=== PATIENT | male | born 1955 | race African-American/Black ===

== ENCOUNTER 2017-03-19 09:58 | Emergency (ER) | payer SELFPAY ==
[2017-03-19] MEDS ORDERED: BENADRYL IV ONE (10:59)
[2017-03-19] MEDS ORDERED: LIDOCAINE VISCOUS 2% PO ONE (10:59)
[2017-03-19] MEDS ORDERED: REGLAN IV ONE (10:59)
[2017-03-19] MEDS ORDERED: ALUM-MAG HYDROX-SIMETH 200-200-20MG/5ML PO ONE (10:59)
[2017-03-19] MEDS ORDERED: PEPCID IV ONE (10:59)
[2017-03-19] MEDS ORDERED: NACL 0.9% 1000 ML 1,000 ML IV ONE (10:59)
--- NOTE | 2017-03-19 11:24 | Emergency Department Report ---
ED Chest Pain HPI - General Chief Complaint: Fever Stated Complaint: CHEST PAIN Time Seen by Provider: 03/19/17 10:37 Source: patient, family Mode of arrival: Ambulatory Limitations: Language Barrier - History of Present Illness Initial Comments: 61-year-old male with a past medical history of hypertension presents to the hospital with intermittent hiccups 9 days, burning chest pain, and intermittent headache. Patient is originally from [facility] but has been in the times one year denies any recent travel outside the country. He is taking blood pressure medication that has been prescribed to him previously in [facility]. He had a refill sent from [facility] 9 days ago. Since beginning of this refill his symptoms have occurred. Patient does not know the name of the pills the cannot verify if they are the same pills however, he states they look the same as his previous pills. Patient currently not having any hiccups but apparently had hiccups upon arrival. Patient complains of burning pain to his chest currently but states it initially does not hurt in the morning but then happens throughout the day duties by mouth intake secondary to decreased appetite. Patient complains of shortness of breath only with hiccups episodes. He denies nausea, vomiting, or diaphoresis. He complains of a moderate frontal headache. No local PMD Severity scale (0 -10): 6 - Related Data Allergies Allergy/AdvReac Type Severity Reaction Status Date / Time No Known Allergies Allergy Verified 03/19/17 10:15 Heart Score - HEART Score History: Slightly suspicious EKG: Normal Age: 45-65 Risk factors: 1-2 risk factors Troponin: < normal limit HEART Score: 2 ED Review of Systems ROS: Stated complaint: CHEST PAIN Other details as noted in HPI Comment: All other systems reviewed and negative Other: Constitutional: No fevers chills or weight loss Eyes: No eye pain visual changes or discharge ENT: No ear pain or throat pain Neck: Denies pain Respiratory: Denies cough wheezing Cardiovascular: Denies palpitations, syncope GI: Denies abdominal pain, nausea, vomiting, diarrhea : Denies dysuria Musculoskeletal: Denies back pain Skin: Denies rash, lesions, erythema Neurologic: Denies headache, numbness, weakness Psychiatric: Denies suicidal ideation, hallucinations ED Past Medical Hx - Past Medical History Hx Hypertension: Yes - Surgical History Past Surgical History?: Yes Additional Surgical History: leg - Social History Smoking Status: Never Smoker Substance Use Type: Alcohol ED Physical Exam - General Limitations: Language Barrier - Other Other exam information: General: No limitations, patient is alert in no acute distress Head exam: Atraumatic, normocephalic Eyes exam: Normal appearance, pupils equal reactive to light, extraocular movements intact ENT: Moist mucous membrane, normal oropharynx Neck exam: Normal inspection, full range of motion, no meningismus nontender Respiratory exam: Clear to auscultation bilateral, no wheezes, rales, crackles Cardiovascular: Normal rate and rhythm, normal heart sounds Abdomen: Soft, nondistended, and nontender, with normal bowel sounds, no rebound, or guarding Extremity: Full range of motion normal inspection no deformity Back: Normal Inspection, full range of motion, no tenderness Neurologic: Alert, oriented x3, cranial nerves intact, no motor or sensory deficit Psychiatric: normal affect, normal mood Skin: Warm, dry, intact ED Course Vital Signs 03/19/17 03/19/17 03/19/17 10:11 10:37 10:38 Temperature 98.4 F 98.1 F Pulse Rate 108 H 106 H Respiratory 20 20 20 Rate Blood Pressure 140/92 Blood Pressure 142/85 [Left] O2 Sat by Pulse 98 98 98 Oximetry 03/19/17 13:36 Temperature Pulse Rate 105 H Respiratory 18 Rate Blood Pressure Blood Pressure 156/84 [Left] O2 Sat by Pulse 98 Oximetry ED Medical Decision Making - Lab Data Result diagrams: 03/19/17 10:59 03/19/17 11:56 Lab Results 03/19/17 03/19/17 03/19/17 Range/Units 10:59 11:56 11:56 WBC 8.2 (4.5-11.0) K/mm3 RBC 4.73 (3.65-5.03) M/mm3 Hgb 12.9 (11.8-15.2) gm/dl Hct 37.1 (35.5-45.6) % MCV 79 L (84-94) fl MCH 27 L (28-32) pg MCHC 35 H (32-34) % RDW 13.8 (13.2-15.2) % Plt Count 300 (140-440) K/mm3 Lymph % (Auto) 10.8 L (13.4-35.0) % Nash % (Auto) 14.6 H (0.0-7.3) % Eos % (Auto) 0.0 (0.0-4.3) % Baso % (Auto) 0.3 (0.0-1.8) % Lymph # 0.9 L (1.2-5.4) K/mm3 Nash # 1.2 H (0.0-0.8) K/mm3 Eos # 0.0 (0.0-0.4) K/mm3 Baso # 0.0 (0.0-0.1) K/mm3 Seg Neutrophils % 74.3 H (40.0-70.0) % Seg Neutrophils # 6.1 (1.8-7.7) K/mm3 Sodium 127 L (137-145) mmol/L Potassium 3.5 L (3.6-5.0) mmol/L Chloride 89.2 L (98-107) mmol/L Carbon Dioxide 19 L (22-30) mmol/L Anion Gap 22 mmol/L BUN 13 (9-20) mg/dL Creatinine 0.9 (0.8-1.5) mg/dL Estimated GFR > 60 ml/min BUN/Creatinine Ratio 14.44 % Glucose 104 H (75-100) mg/dL Calcium 8.2 L (8.4-10.2) mg/dL Total Bilirubin 1.30 H (0.1-1.2) mg/dL AST 42 H (5-40) units/L ALT 23 (7-56) units/L Alkaline Phosphatase 37 (35-129) units/L Total Creatine Kinase 574 H (55-170) units/L CK-MB (CK-2) 2.4 (0.0-4.0) ng/mL CK-MB (CK-2) Rel Index 0.4 (0-4) Troponin T < 0.010 (0.00-0.029) ng/mL Total Protein 8.2 (6.3-8.2) g/dL Albumin 3.7 L (3.9-5) g/dL Albumin/Globulin Ratio 0.8 % Triglycerides 82 (2-149) mg/dL Cholesterol 143 (50-199) mg/dL LDL Cholesterol Direct 101 (50-130) mg/dL HDL Cholesterol 26 L (40-59) mg/dL Cholesterol/HDL Ratio 5.50 % - EKG Data -: EKG Interpreted by Me (sinus tach 104 lae, no stemi) - Radiology Data Radiology results: report reviewed (chest x-ray: No acute findings) - Medical Decision Making Plan admit patient to hospital for further workup. I suspect GI cause of symptoms but patient also has cardiac risk factors, there is significant language barrier, and lack of follow-up. - Differential Diagnosis intractable hiccups, PR, GERD, esophageal spasm Critical Care Time: No Critical care attestation.: If time is entered above; I have spent that time in minutes in the direct care of this critically ill patient, excluding procedure time. ED Disposition Clinical Impression: Chest pain, Hiccoughs, HTN (hypertension) Disposition: OP ADMIT IP TO THIS HOSP Is pt being admited?: Yes Condition: Stable Time of Disposition: 12:57 (Dr Causey/hosp)
[2017-03-19 12:02] LABS: Basophils % (Auto) 0.3 % (0.0-1.8); Hematocrit 37.1 % (35.5-45.6); Hemoglobin 12.9 gm/dl (11.8-15.2); Mean Corpuscular HGB Conc 35 % (32-34); Mean Corpuscular Hemoglobin 27 pg (28-32); Mean Corpuscular Volume 79 fl (84-94); Platelet Count 300 K/mm3 (140-440); Red Blood Count 4.73 M/mm3 (3.65-5.03); Red Cell Distribution Width 13.8 % (13.2-15.2); White Blood Count 8.2 K/mm3 (4.5-11.0)
--- NOTE | 2017-03-19 12:16 | XRay Report ---
AP CHEST: HISTORY: chest pain AP view of the chest demonstrates a normal mediastinal and cardiac contour with clear lungs and normal bony and soft tissue structures. IMPRESSION: No acute cardiopulmonary process.
[2017-03-19 12:20] LABS: Creatine Kinase MB 2.4 ng/mL (0.0-4.0)
[2017-03-19 12:22] LABS: Alanine Aminotransferase 23 units/L (7-56); Albumin 3.7 g/dL (3.9-5); Albumin/Globulin Ratio 0.8 %; Alkaline Phosphatase 37 units/L (35-129); Anion Gap 22 mmol/L; BUN/Creatinine Ratio 14.44; Blood Urea Nitrogen 13 mg/dL (9-20); Calcium 8.2 mg/dL (8.4-10.2); Carbon Dioxide 19 mmol/L (22-30); Chloride 89.2 mmol/L (98-107); Creatine Kinase 574 units/L (55-170); Glucose 104 mg/dL (75-100); Potassium 3.5 mmol/L (3.6-5.0); Sodium 127 mmol/L (137-145); Total Protein 8.2 g/dL (6.3-8.2)
[2017-03-19] MEDS ORDERED: K-DUR PO ONE (12:43)
[2017-03-19] MEDS ORDERED: NACL 0.45% 1,000 ML IV SCH (14:00)
[2017-03-19] MEDS ORDERED: NACL ONE (15:22)
--- NOTE | 2017-03-19 16:08 | Cat Scan Report ---
FINAL REPORT EXAM: CT ANGIO CHEST HISTORY: dypsnea TECHNIQUE: CT chest CT angiogram with reconstructions PRIORS: None. FINDINGS: Exam is limited due to extensive respiratory motion artifact. Within the limits of the study there is no evidence of filling defect within the central pulmonary vasculature to suggest the presence of acute pulmonary embolus. No evidence of mediastinal pathologic lymph node enlargement Heart and great vessels are unremarkable. The aorta is normal in caliber. No focal pulmonary infiltrate identified. No pleural fluid collection seen. No acute pulmonary abnormality noted. Visualized portion of the upper abdomen demonstrates no acute change. IMPRESSION: Within the limits of the exam no CT evidence of acute pulmonary embolus
--- NOTE | 2017-03-19 16:17 | History and Physical Report ---
History of Present Illness Chief complaint: chest pain History of present illness: 61 YO Male HTN presents to ED for evaluation of chest pain, and hiccups. Pt seen and evaluated in ED and treated with supportive care, IVF, serial cardiac enzymes, ekg and telemetry monitoring. Pt found to have elevated D dimer and underwent CTA chest which was negative for acute findings. Pt medically optimized and discharged home. Pt instructed to f/u pcp 1wk for f/u care. Past History Past Medical History: hypertension Past Surgical History: No surgical history, Other (reviewed) Social history: single. denies: smoking, alcohol abuse, prescription drug abuse , IV drug use Family history: hypertension Medications and Allergies Allergies Allergy/AdvReac Type Severity Reaction Status Date / Time No Known Allergies Allergy Verified 03/19/17 10:15 Home Medications Medication Instructions Recorded Confirmed Last Taken Type Lansoprazole/Amoxiciln/Clarith 1 each PO BID #1 combo..pkg 03/19/17 Unknown Rx [Prevpac Patient Pack] Lansoprazole/Amoxiciln/Clarith 1 each PO BID #20 combo..pkg 03/19/17 Unknown Rx [Prevpa Patient Pack] Active Meds: Active Medications Sodium Chloride (Nacl 0.45%) 1,000 mls @ 500 mls/hr IV DIRECT GURJIT Review of Systems Constitutional: no weight loss, no weight gain, no fever Ears, nose, mouth and throat: no ear pain, no ear discharge, no tinnitis, no decreased hearing Cardiovascular: chest pain, no rapid/irregular heart beat, no syncope, no lightheadedness, no shortness of breath, no dyspnea on exertion, no paroxysmal nocturnal dyspnea, no claudication, no leg edema Respiratory: no cough, no cough with sputum, no excessive sputum, no hemoptysis , no pleurisy Gastrointestinal: no abdominal pain, no nausea, no vomiting, no diarrhea Genitourinary Male: no dysuria, no hematuria, no flank pain, no discharge Rectal: no pain, no incontinence, no bleeding Musculoskeletal: no neck stiffness, no neck pain, no shooting arm pain, no arm numbness/tingling Integumentary: no rash, no pruritis, no redness, no sores Neurological: no transient paralysis, no paralysis, no parathesias, no tingling , no seizures, no syncope Psychiatric: no anxiety, no memory loss, no change in sleep habits, no sleep disturbances Endocrine: no cold intolerance, no heat intolerance, no polyphagia, no excessive thirst, no polydipsia Hematologic/Lymphatic: no easy bruising, no easy bleeding Allergic/Immunologic: no urticaria, no allergic rhinitis, no wheezing Exam - Constitutional Vitals: Temp Pulse Resp BP Pulse Ox 98.1 F 105 H 18 156/84 98 03/19/17 10:37 03/19/17 13:36 03/19/17 13:36 03/19/17 13:36 03/19/17 13:36 General appearance: Present: no acute distress, well-nourished - EENT Eyes: Present: PERRL ENT: hearing intact, clear oral mucosa - Neck Neck: Present: supple, normal ROM - Respiratory Respiratory effort: normal Respiratory: bilateral: CTA - Cardiovascular Heart Sounds: Present: S1 & S2. Absent: rub, click - Extremities Extremities: pulses symmetrical, No edema Peripheral Pulses: within normal limits - Abdominal General gastrointestinal: Present: soft, non-tender, non-distended, normal bowel sounds Male genitourinary: Present: normal - Integumentary Integumentary: Present: clear, warm, dry - Musculoskeletal Musculoskeletal: gait normal, strength equal bilaterally - Psychiatric Psychiatric: appropriate mood/affect, intact judgment & insight - Neurologic Neurologic: CNII-XII intact, moves all extremities Results - Labs CBC & Chem 7: 03/19/17 10:59 03/19/17 11:56 Labs: Abnormal lab results 03/19/17 03/19/17 03/19/17 Range/Units 10:59 11:56 11:56 MCV 79 L (84-94) fl MCH 27 L (28-32) pg MCHC 35 H (32-34) % Lymph % (Auto) 10.8 L (13.4-35.0) % Martin % (Auto) 14.6 H (0.0-7.3) % Lymph # 0.9 L (1.2-5.4) K/mm3 Martin # 1.2 H (0.0-0.8) K/mm3 Seg Neutrophils % 74.3 H (40.0-70.0) % D-Dimer (0-234) ng/mlDDU Sodium 127 L (137-145) mmol/L Potassium 3.5 L (3.6-5.0) mmol/L Chloride 89.2 L (98-107) mmol/L Carbon Dioxide 19 L (22-30) mmol/L Glucose 104 H (75-100) mg/dL Calcium 8.2 L (8.4-10.2) mg/dL Total Bilirubin 1.30 H (0.1-1.2) mg/dL AST 42 H (5-40) units/L Total Creatine Kinase 574 H (55-170) units/L Albumin 3.7 L (3.9-5) g/dL HDL Cholesterol 26 L (40-59) mg/dL 03/19/17 Range/Units 13:44 MCV (84-94) fl MCH (28-32) pg MCHC (32-34) % Lymph % (Auto) (13.4-35.0) % Martin % (Auto) (0.0-7.3) % Lymph # (1.2-5.4) K/mm3 Martin # (0.0-0.8) K/mm3 Seg Neutrophils % (40.0-70.0) % D-Dimer 1205.69 H (0-234) ng/mlDDU Sodium (137-145) mmol/L Potassium (3.6-5.0) mmol/L Chloride (98-107) mmol/L Carbon Dioxide (22-30) mmol/L Glucose (75-100) mg/dL Calcium (8.4-10.2) mg/dL Total Bilirubin (0.1-1.2) mg/dL AST (5-40) units/L Total Creatine Kinase (55-170) units/L Albumin (3.9-5) g/dL HDL Cholesterol (40-59) mg/dL Assessment and Plan - Patient Problems (1) Atypical chest pain Current Visit: Yes Status: Acute Plan to address problem: unremarkable CTangio chest, cardiac enzymes, ekg, and telemetry, D/C home f/u pcp 1wk for f/u care. (2) PUD (peptic ulcer disease) Current Visit: Yes Status: Acute Plan to address problem: Prevpack, f/u pcp 1 wk for f/u care and ppi therapy
[2017-03-19 17:06] VITALS: BP 125/77
== END 2017-03-19 17:06 | disposition admitted as inpatient to this hospital (09) ==
LOC: ED 09:58
DX: I10 Essential (primary) hypertension (principal); R07.89 Other chest pain
CPT/HCPCS: 36415; 71010; 71275; 80053; 80061; 82550; 82553; 84484; 85025; 85379; 93005; 93010; 96361; 96374; 96375; 99285; J1200; J2765; J7030; Q9967

== ENCOUNTER 2017-03-23 14:14 | Emergency (ER) | payer OTHER ==
[2017-03-23] MEDS ORDERED: PROTONIX IV ONE (17:06)
[2017-03-23] MEDS ORDERED: NACL 0.9% 1000 ML 1,000 ML IV ONE (17:06)
[2017-03-23] MEDS ORDERED: ANTIVERT PO ONE (17:07)
[2017-03-23] MEDS ORDERED: ALUM-MAG HYDROX-SIMETH 200-200-20MG/5ML PO ONE (17:07)
[2017-03-23 17:28] LABS: Hematocrit 34.6 % (35.5-45.6); Hemoglobin 11.6 gm/dl (11.8-15.2); Mean Corpuscular HGB Conc 34 % (32-34); Mean Corpuscular Hemoglobin 27 pg (28-32); Mean Corpuscular Volume 81 fl (84-94); Platelet Count 414 K/mm3 (140-440); White Blood Count 7.8 K/mm3 (4.5-11.0)
[2017-03-23 17:39] LABS: INR 1.14 (0.87-1.13); Partial Thromboplastin Time 34.3 Sec. (24.2-36.6)
[2017-03-23 17:42] LABS: Alanine Aminotransferase 54 units/L (7-56); Albumin 3.4 g/dL (3.9-5); Albumin/Globulin Ratio 0.9 %; Alkaline Phosphatase 40 units/L (35-129); Anion Gap 20 mmol/L; BUN/Creatinine Ratio 13.33; Blood Urea Nitrogen 12 mg/dL (9-20); Carbon Dioxide 19 mmol/L (22-30); Chloride 93.7 mmol/L (98-107); Glucose 143 mg/dL (75-100); Potassium 4.3 mmol/L (3.6-5.0); Sodium 128 mmol/L (137-145); Total Protein 7.2 g/dL (6.3-8.2)
--- NOTE | 2017-03-23 17:57 | Cat Scan Report ---
FINAL REPORT PROCEDURE: CT HEAD/BRAIN WO CON TECHNIQUE: Computerized tomography of the head was performed without contrast material. HISTORY: dizziness severe COMPARISON: No prior studies are available for comparison. FINDINGS: Brain: There is no evidence of intracranial hemorrhage. No parenchymal hemorrhage is seen. No mass lesions or mass effect is identified. No abnormal extra-axial fluid collections or masses are seen. There is a nonspecific coarse calcification within the dentate nucleus of the right cerebellar hemisphere measuring 6.9 x 8.4 millimeters. There is no mass effect or surrounding edema. There is 8.7 by 18.1 millimeter CSF oval density which appears to be extra-axial located lateral aspect left temporal lobe suggesting a small rack noise cyst. This has only mild localized mass effect without surrounding edema. There is some decreased density seen in the periventricular white matter without mass effect. This is fairly symmetric and does not exhibit any mass effect consistent with gliosis probably on the basis of microvascular disease or white matter changes of aging. Ventricles: The ventricles, sulcal pattern and fissures are prominent consistent with atrophy. Bones: No evidence of acute fracture. Paranasal sinuses: Small nodular density is seen in the right and left maxillary sinus suggesting small polyps or mucous retention cyst. There is mild patchy mucosal disease in a few of the ethmoid air cells. Visualized portions of the paranasal sinuses otherwise appear clear. The entire maxillary sinuses are not included on this exam. Mastoid air cells: clear IMPRESSION: No acute abnormalities are seen. Small right joint cyst suspected lateral aspect left temporal lobe. Small nonspecific dense calcification visualize dentate nucleus of the right cerebellar hemisphere. Mild paranasal sinus disease as described. No other abnormalities are seen. If symptoms persist or worsen consider follow-up CT scan or MRI for further evaluation.
[2017-03-23] MEDS ORDERED: PROTONIX PO ONE ×2 (17:59→18:01)
[2017-03-23 18:29] LABS: Basophils % (Manual) 0 % (0.0-1.8); Blastocytes % (Manual) 0 %; Eosinophils % (Manual) 0 % (0.0-4.3); Microcytosis 1+; Polychromasia 1+
[2017-03-23 18:30] LABS: Diff Status Complete; Platelet Estimate Consistent w Auto
--- NOTE | 2017-03-23 20:27 | Emergency Department Report ---
HPI - General Chief Complaint: Dizziness Time Seen by Provider: 03/23/17 17:02 - HPI HPI: Dizziness, heartburn, for the past 2 weeks. Patient was seen in the ED recently but didn't fill his medications due to cost. patient had chest pain then, but states that he feels more like a burning in his chest pain, and nausea. no vomiting. ED Past Medical Hx - Past Medical History Previous Medical History?: Yes Hx Hypertension: Yes Additional medical history: hiccups - Surgical History Past Surgical History?: Yes Additional Surgical History: leg - Social History Smoking Status: Never Smoker Substance Use Type: None - Medications Home Medications: Home Medications Medication Instructions Recorded Confirmed Last Taken Type Lansoprazole/Amoxiciln/Clarith 1 each PO BID #1 combo..pkg 03/19/17 Unknown Rx [Prevpa Patient Pack] Lansoprazole/Amoxiciln/Clarith 1 each PO BID #20 combo..pkg 03/19/17 Unknown Rx [Prevpac Patient Pack] Meclizine [Antivert] 25 mg PO TID PRN #60 tablet 03/23/17 Unknown Rx Omeprazole 20 mg PO BIDAC #30 capsule. 03/23/17 Unknown Rx ED Review of Systems ROS: Stated complaint: HTN Other details as noted in HPI Comment: All other systems reviewed and negative Respiratory: no symptoms reported Cardiovascular: chest pain Physical Exam - Physical Exam Vital Signs: Vital Signs 03/23/17 03/23/17 03/23/17 14:24 16:12 18:00 Temperature 98.0 F 97.7 F Pulse Rate 116 H 106 H 103 H Respiratory 16 18 20 Rate Blood Pressure 128/87 Blood Pressure 135/87 113/76 [Left] O2 Sat by Pulse 99 95 98 Oximetry Physical Exam: GENERAL: The patient is well-developed well-nourished. HEENT: Normocephalic. Atraumatic. Extraocular motions are intact. Patient has moist mucous membranes. NECK: Supple. No meningitic signs are noted. There is no adenopathy noted. CHEST/LUNGS: Clear to auscultation. There is no respiratory distress noted. HEART/CARDIOVASCULAR: Regular. There is no tachycardia. There is no gallop rub or murmur. ABDOMEN: Abdomen is soft, nontender. Patient has normal bowel sounds. There is no abdominal distention. SKIN: There is no rash. There is no edema. There is no diaphoresis. NEURO: The patient is awake, alert, and oriented. The patient is cooperative. The patient has no focal neurologic deficits. The patient has normal speech and gait. Cranial nerves II through XII grossly intact, no drift. Negative Romberg MUSCULOSKELETAL: good rom in all ext ED Course Vital Signs 03/23/17 03/23/17 03/23/17 14:24 16:12 18:00 Temperature 98.0 F 97.7 F Pulse Rate 116 H 106 H 103 H Respiratory 16 18 20 Rate Blood Pressure 128/87 Blood Pressure 135/87 113/76 [Left] O2 Sat by Pulse 99 95 98 Oximetry ED Medical Decision Making - Lab Data Result diagrams: 03/23/17 17:11 03/23/17 17:11 Critical care attestation.: If time is entered above; I have spent that time in minutes in the direct care of this critically ill patient, excluding procedure time. ED Disposition Clinical Impression: Dizziness, Gastritis Disposition: DC-01 TO HOME OR SELFCARE Is pt being admited?: No Does the pt Need Aspirin: No Condition: Stable Instructions: Chest Pain (ED) Prescriptions: Meclizine [Antivert] 25 mg PO TID PRN #60 tablet PRN Reason: Vertigo Omeprazole 20 mg PO BIDAC #30 capsule. Referrals: PRIMARY CARE, [Primary Care Provider] - 3-5 Days
[2017-03-23 20:50] VITALS: BP 105/64
== END 2017-03-23 20:50 | disposition home or self-care (01) ==
LOC: ED 14:14
DX: K29.70 Gastritis, unspecified, without bleeding (principal); R42 Dizziness and giddiness; I10 Essential (primary) hypertension
CPT/HCPCS: 36415; 70450; 80053; 82550; 84484; 85007; 85025; 85610; 85730; 93005; 93010; 96361; 96374; 99284; J7030; C9113